=== PATIENT | female | born 1940 | race African-American/Black ===

== ENCOUNTER 2017-09-06 20:25 | Emergency (ER) | payer OTHER ==
[~2017-09-06] VITALS: Ht 157.5 cm; Wt 68.0 kg
[2017-09-06] MEDS ORDERED: ULTRAM 50MG TAB50 MG PO (21:22)
== END 2017-09-06 22:33 | disposition home or self-care (01) ==
LOC: ER 20:25
DX: S02.32XA Fracture of orbital floor, left side, initial encounter for closed fracture (principal); S00.81XA Abrasion of other part of head, initial encounter; I10 Essential (primary) hypertension; G30.9 Alzheimer's disease, unspecified; F02.80 Dementia in other diseases classified elsewhere, unspecified severity, without behavioral disturbance, psychotic disturbance, mood disturbance, and anxiety; W18.30XA Fall on same level, unspecified, initial encounter; Y93.89 Activity, other specified; Y92.89 Other specified places as the place of occurrence of the external cause; Y99.8 Other external cause status